=== PATIENT | female | born 1970 | race Caucasian/White ===

== ENCOUNTER → 2022-02-05 | Day surgery (SDC) | payer BC ==
[2022-02-04 16:45] VITALS: BP 132/88
[~2022-02-05] MED LIST: BISOPROLOL-HCT1 EAC1 PO; BUPIVACAINE HC 0.75% PF 10ML VIAL INJ ONE; CELEBREX200 MG PO; CEPHALEXIN500 MG PO; CITALOPRAM HBR20 MG PO; DEXAMETHASONE SOD PHOS INJ 4 MG/ML SDV ONE; DEXILANT60 MG PO; FENTANYL CITRATE/PF 100MCG/2 ML INJ ONE; HYDROCODONE/APAP 7.5MG-325MG 1 EA TAB ONE; KETOROLAC TROMETHAMINE 30 MG/ML VIAL ONE; LIDOCAINE HCL 2% LOCAL INJ 5 ML SDV VIAL INJ ONE; LYRICA25 MG PO; MIDAZOLAM HCL 2 MG/2 ML VIAL ONE; MOTRIN600 MG PO; NEOSTIGMINE 1 MG/ML 10ML VIAL ONE; ONDANSETRON HCL INJ 2MG/ML 2ML 2 MG/ML VIAL ONE; PHENTERMINE H37.5 M1 PO; POVIDONE IODINE 0.05% 0.05 % ML PO ONE; PROPOFOL IV EMULSION 10 MG/ML 20 ML VIAL ONE; PROTONIX20 MG PO; SEVOFLURANE INHAL SOLN 250 ML PEN BTL ONE; ULTRAM50 MG PO; VITAMIN D3 COM1 EACH PO
== END | disposition home or self-care (01) ==
LOC: OR 13:00
PROVIDERS: ATTEND Podiatrist Foot & Ankle Surgery
DX: M60.271 Foreign body granuloma of soft tissue, not elsewhere classified, right ankle and foot (principal); Z18.89 Other specified retained foreign body fragments; L03.115 Cellulitis of right lower limb; M54.50 Low back pain, unspecified; K21.9 Gastro-esophageal reflux disease without esophagitis; E66.9 Obesity, unspecified; Z01.810 Encounter for preprocedural cardiovascular examination; Z01.812 Encounter for preprocedural laboratory examination; Z20.822 Contact with and (suspected) exposure to COVID-19; Z79.899 Other long term (current) drug therapy; Z68.37 Body mass index [BMI] 37.0-37.9, adult
CPT/HCPCS: 28192; 76000; 88300; 93005; J0690; J1100; J1885; J2001; J2250; J2405; J2704; J2710; J3010; Q4150; U0002

== ENCOUNTER → 2024-07-06 | Day surgery (SDC) | payer BC ==
[~2024-07-06] MED LIST changes: -BUPIVACAINE HC 0.75% PF 10ML VIAL INJ ONE; +BUPIVACAINE HCL 0.5% INJ 30 ML VIAL INJ ONE; +CYMBALTA20 MG PO; -DEXAMETHASONE SOD PHOS INJ 4 MG/ML SDV ONE; -FENTANYL CITRATE/PF 100MCG/2 ML INJ ONE; +FEROSUL325 MG PO; -HYDROCODONE/APAP 7.5MG-325MG 1 EA TAB ONE; -KETOROLAC TROMETHAMINE 30 MG/ML VIAL ONE; -LIDOCAINE HCL 2% LOCAL INJ 5 ML SDV VIAL INJ ONE; -MIDAZOLAM HCL 2 MG/2 ML VIAL ONE; -NEOSTIGMINE 1 MG/ML 10ML VIAL ONE; +NEURONTIN300 MG PO; -ONDANSETRON HCL INJ 2MG/ML 2ML 2 MG/ML VIAL ONE; -POVIDONE IODINE 0.05% 0.05 % ML PO ONE; +PROBIOTIC & AC1 EACH PO; -PROPOFOL IV EMULSION 10 MG/ML 20 ML VIAL ONE; -SEVOFLURANE INHAL SOLN 250 ML PEN BTL ONE
[2024-07-06] MEDS: LACTATED RINGER'S 1,000 ML ONE (10:38)
[2024-07-06 14:50] VITALS: BP 131/80; PULSE 67; RESP 16; O2SAT 99
== END | disposition home or self-care (01) ==
LOC: OR 10:24
PROVIDERS: ATTEND Podiatrist Foot & Ankle Surgery
DX: T84.84XA Pain due to internal orthopedic prosthetic devices, implants and grafts, initial encounter (principal); M79.2 Neuralgia and neuritis, unspecified; E66.9 Obesity, unspecified; M54.9 Dorsalgia, unspecified; F41.9 Anxiety disorder, unspecified; F32.A Depression, unspecified; Y83.8 Other surgical procedures as the cause of abnormal reaction of the patient, or of later complication, without mention of misadventure at the time of the procedure; Z01.810 Encounter for preprocedural cardiovascular examination; Z79.899 Other long term (current) drug therapy
CPT/HCPCS: 28899; 76000; 88300; 93005; C1762; J0690; J7121